=== PATIENT | female | born 1985 | race Caucasian/White ===

== ENCOUNTER 2023-09-29 09:24 | Emergency (ER) | payer OTHER ==
[~2023-09-29] VITALS: Ht 170.2 cm; Wt 90.9 kg
[2023-09-29] MEDS ORDERED: ENDOMETRIN100 MG VG (09:53)
[2023-09-29 10:05] VITALS: BP 139/81
== END 2023-09-29 10:05 | disposition home or self-care (01) ==
LOC: ED 09:24
DX: O20.9 Hemorrhage in early pregnancy, unspecified (principal); Z3A.01 Less than 8 weeks gestation of pregnancy